=== PATIENT | female | born 1960 | race Caucasian/White ===

== ENCOUNTER 2017-03-15 16:08 | Emergency (ER) | payer SELFPAY ==
[2017-03-15 16:26] VITALS: TEMP 97.8; BMI 26.5
[2017-03-15] MEDS ORDERED: ASPIRIN 81 MG CHEWABLE TABLETS PO ONE (17:10)
--- NOTE | 2017-03-15 17:10 | PDOC ---
Attending Attestation - Resident Resident Name: RiosAlena - ED Attending Attestation I have performed the following: I have examined & evaluated the patient, The case was reviewed & discussed with the resident, I agree w/resident's findings & plan, Exceptions are as noted - HPI HPI: 03/15/17 17:09 56 yo female dev chest pain while driving earlier today . It lasted for 30 minutes.Denies N V diaphoresis or radiation of pain 03/18/17 00:46 head ncat neck no jvd,no bruits neck supple lungs cta b/l cvs [id number] no murmers abd soft,nontender ext no edema neuro axox3,ambulating w ease skin warm,dry psych appropriate - Physicial Exam PE: 03/18/17 00:50 see physical exam above - Medical Decision Making 03/15/17 17:10 ekg nsr @ 69 bpm plan cardiac w/u 03/18/17 00:49 pt left AMA and said she would see her PCP the next day
[2017-03-15] MEDS ORDERED: ASPIRIN 81 MG CHEWABLE TABLETS ONE (17:15)
[2017-03-15 17:28] LABS: BASO % 0.9 % (0-2.0); EOS % 3.5 % (0-4.5); HEMATOCRIT 42.7 % (32.4-45.2); HEMOGLOBIN 14.3 GM/dL (10.7-15.3); LYMPH % 22.5 % (8-40); MCH 29.2 pg (25.7-33.7); MCHC 33.6 g/dl (32.0-36.0); MEAN PLT VOLUME 9.5 fl (7.5-11.1); NEUT % 65.1 % (42.8-82.8); PLATELET COUNT 182 K/MM3 (134-434); RBC 4.91 M/mm3 (3.60-5.2); RDW 13.1 % (11.6-15.6); WHITE BLOOD COUNT 6.4 K/mm3 (4.0-10.0)
--- NOTE | 2017-03-15 17:42 | PDOC ---
History of Present Illness - General Chief Complaint: Chest Pain Stated Complaint: CHEST PAIN Time Seen by Provider: 03/15/17 17:06 History Source: Patient, Significant Other Exam Limitations: No Limitations - History of Present Illness Initial Comments: This is a 56 YOF who presents c/o left upper chest pain fluctuating up to 8/10 and left arm tingling since 11 am today. The onset was while she was driving into town from [place] (about a [address] She currently has no pain. She denies any recent injury to the area, but notes that two days ago she picked up a heavy box and believes her pain may be due to this although she did not have symptoms just subsequent to lifting it. She has never had these symptoms before. She denies any OCP or estrogen use, recent long drives or plane trips, surgeries, recent illness, recent immobilization, calf swelling, or h/o DVT/PE. Her stress level has been the same as her normal baseline recently. She took ibuprofen for her symptoms after the onset. She does get neck adjustments about every month at her chiropractor's office but has not had one of these since January. She denies any recent fever, chills, nausea, vomiting, diarrhea, constipation, malaise, SOB, or other symptoms. Past History - Past Medical History Allergies/Adverse Reactions: Allergies Allergy/AdvReac Type Severity Reaction Status Date / Time No Known Allergies Allergy Verified 03/15/17 16:26 Home Medications: Ambulatory Orders NK [No Known Home Medication] 03/15/17 COPD: No Thyroid Disease: Yes - Suicide/Smoking/Psychosocial Hx Smoking History: Never smoked Review of Systems - Review of Systems Able to Perform ROS?: Yes Constitutional: No: Chills, Fever, Unexplained wgt Loss HEENTM: No: Nose Congestion, Throat Pain Respiratory: No: Cough, Shortness of Breath Cardiac (ROS): Yes: Chest Pain (left upper). No: Palpitations ABD/GI: No: Constipated, Diarrhea, Nausea, Vomiting : No: Burning, Dysuria Musculoskeletal: No: Back Pain, Neck Pain Integumentary: No: Bruising, Rash Neurological: No: Headache, Numbness, Tingling (left arm), Weakness, Dizziness Psychiatric: No: Anxiety, Stressors Endocrine: No: Unexplained Weight Gain, Unexplained Weight Loss *Physical Exam - Vital Signs Last Vital Signs Temp Pulse Resp BP Pulse Ox 97.8 F 69 18 146/80 99 03/15/17 16:23 03/15/17 16:23 03/15/17 16:23 03/15/17 16:23 03/15/17 17:11 - Physical Exam General Appearance: Yes: Nourished, Appropriately Dressed, Other (pleasant and appropriate adult female who is conversive, appears comfortable, accompanied at bedside by who is supportive). No: Apparent Distress HEENT: positive: EOMI, [place], Normal Voice, Hearing Grossly Normal. negative: Scleral Icterus (R), Scleral Icterus (L), Nasal Congestion Neck: positive: Trachea midline, Supple. negative: Tender, Rigid Respiratory/Chest: positive: Lungs Clear, Normal Breath Sounds. negative: Respiratory Distress, Labored Respiration, Crackles, Rhonchi, Stridor, Wheezing Cardiovascular: positive: Regular Rhythm, Regular Rate, S1, S2. negative: Edema , JVD, Murmur Gastrointestinal/Abdominal: positive: Normal Bowel Sounds, Flat, Soft. negative : Tender, Organomegaly, Pulsatile Mass, Guarding Musculoskeletal: positive: Normal Inspection. negative: Decreased Range of Motion, Vertebral Tenderness Extremity: positive: Normal Capillary Refill, Normal Inspection, Normal Range of Motion. negative: Tender, Cyanosis Integumentary: positive: Normal Color, Dry, Warm. negative: Erythema, Rash, Bruising Neurologic: positive: departmental secretary II-XII NML intact (grossly), Fully Oriented, Alert, Normal Mood/Affect, Normal Response, Motor Strength 5/5 ED Treatment Course - LABORATORY CBC & Chemistry Diagram: 03/15/17 17:24 03/15/17 17:24 - ADDITIONAL ORDERS Additional order review: Laboratory Results 03/15/17 03/15/17 17:24 17:24 PT with INR 10.80 INR 0.96 Sodium 140 Potassium 4.0 Chloride 104 Carbon Dioxide 30 Anion Gap 6 L BUN 11 Creatinine 0.8 Creat Clearance w eGFR > 60 Random Glucose 90 Calcium 9.1 Magnesium 2.3 Total Bilirubin 0.6 AST 23 ALT 38 Alkaline Phosphatase 131 H Creatine Kinase 76 Troponin I < 0.02 Total Protein 7.4 Albumin 3.9 03/15/17 17:24 RBC 4.91 MCV 87.0 MCHC 33.6 RDW 13.1 MPV 9.5 Neutrophils % 65.1 Lymphocytes % 22.5 Monocytes % 8.0 Eosinophils % 3.5 Basophils % 0.9 - Medications Given in the ED: ED Medications Discontinued Medications Generic Name Dose Route Start Last Admin Trade Name Nithin PRN Reason Stop Dose Admin Aspirin 162 mg 03/15/17 17:10 03/15/17 17:39 Asa - PO 03/15/17 17:11 162 mg ONCE ONE Administration Medical Decision Making - Medical Decision Making 03/15/17 17:49 DDX IBNLT ACS, PE, musculoskeletal pain/costochondritis, PNA/bronchitis, etc. Ordered is CBCD CMP Mg Cardiac panel EKG CXR ASA Cardiac monitoring O2 prn. *DC/Admit/Observation/Transfer Diagnosis at time of Disposition: Paresthesias Chest pain Qualifiers: Chest pain type: unspecified Qualified Code(s): R07.9 - Chest pain, unspecified - Discharge Dispostion Disposition: AGAINST MEDICAL ADVICE Condition at time of disposition: Stable Admit: No - Referrals Referrals: Cristobal Yoon MD [Staff Physician] - - Patient Instructions Printed Discharge Instructions: DI for Chest Pain Additional Instructions: You were seen in the ER for chest pain and arm tingling. We did blood labs, an EKG, and a chest x-ray and there were no concerning findings. In order to rule out a heart attack or other serious cause of the chest pain, we would need to draw another blood sample and check your second heart enzyme level 4 hours after the first one. This is our official recommendation here in the ED (that you stay for the second blood draw). We are having you sign out against medical advice. Please follow up with a primary care doctor. We are giving you referral info in this packet. Return to the ER with any new or worsening symptoms including worsening chest pain, shortness of breath, or other symptoms. - Post Discharge Activity
[2017-03-15 17:44] LABS: INR 0.96 (0.82-1.09); PROTHROMBIN TIME (PATIENT) 10.8 SEC (9.98-11.88)
[2017-03-15 17:53] LABS: ALBUMIN 3.9 g/dl (3.4-5.0); ANION GAP 6 (8-16); BILIRUBIN,TOTAL 0.6 mg/dL (0.2-1.0); BLOOD UREA NITROGEN 11 mg/dL (7-18); CALCIUM 9.1 mg/dL (8.5-10.1); CHLORIDE 104 mmol/L (98-107); CO2 30 mmol/L (21-32); CREATININE 0.8 mg/dL (0.55-1.02); GLUCOSE,RANDOM 90 mg/dL (74-106); MAGNESIUM 2.3 mg/dL (1.8-2.4); SGOT/AST 23 U/L (15-37); SGPT/ALT 38 U/L (12-78); SODIUM 140 mmol/L (136-145); TOT PROT 7.4 g/dl (6.4-8.2)
[2017-03-15 17:56] LABS: ALK PHOS 131 U/L (45-117)
[2017-03-15 19:02] VITALS: BP 124/89; PULSE 64
--- NOTE | 2017-03-16 13:04 | EKG ---
Test Reason : Blood Pressure : / mmHG Vent. Rate : 069 BPM Atrial Rate : 069 BPM P-R Int : 152 ms QRS Dur : 074 ms QT Int : 380 ms P-R-T Axes : 050 028 044 degrees QTc Int : 407 ms NORMAL SINUS RHYTHM NORMAL ECG NO PREVIOUS ECGS AVAILABLE Confirmed by RECEE ZAMORA MD ([id number]) on 03/16/2017 1:04:27 PM Referred By: Confirmed By:REECE ZAMORA MD
== END 2017-03-15 19:14 | disposition left against medical advice (07) ==
LOC: JER 16:08
DX: R07.89 Other chest pain (principal); F20.2 Catatonic schizophrenia
CPT/HCPCS: 36415; 71046-TC; 80053; 82550; 83735; 84484; 85025; 85610; 93005; 93010; 99284-25